=== PATIENT | female | born 1945 | race Caucasian/White ===

== ENCOUNTER 2025-07-26 08:08 | Emergency (ER) | payer OTHER, SELFPAY ==
[2025-07-26] VITALS (9 sets, daily range): BP systolic 113–187; BP diastolic 62–96; BMI 27.8
--- NOTE | 2025-07-26 08:32 | ED.GENMED ---
History of Present Illness
General
Chief Complaint: Back Pain
Source: patient
Exam Limitations: none
Time Seen by Provider: 07/26/25 08:12
History of Present Illness
History of Present Illness:
80yoF with a history of hypertension, hyperlipidemia, type 2 diabetes, asthma, and prior back surgery presenting via EMS for evaluation of right flank/back pain. She denies any trauma or inciting incident. She woke up around 3 AM with pain. Pain
has been constant since it began. Pain is worse with movement and breathing. She took [id number] medication without any relief. She denies any fevers, chest pain, dysuria, hematuria. No radiating pain down the legs or lower extremity
weakness. She lives alone and ambulates with a rolling walker.
Phy Exam
General Physical Exam
General Presentation: well appearing and no apparent distress
General age: appears stated age
General Skin: warm and dry
General Habitus: normal and elderly
General Mental: alert
ENT Exam
ENT Exam: normocephalic
Cardiovascular Exam
Cardiovascular Exam: regular rate/rhythm, no murmur and normal peripheral pulses (2+ PT pulses bilaterally)
Pulmonary Exam
Pulmonary Exam: lungs clear, no respiratory distress, no rales, no crackles, no rhonchi and no wheezing
Gastrointestinal Exam
Gastrointestinal Exam: soft, non distended and other (+Tenderness throughout lower abdomen. No rebound or guarding.)
Neurological Exam
Neurological Exam: alert
[place] Coma Scale
Eye Opening: Spontaneous
Verbal Response: Oriented
Motor Response: Obeys Commands
GCS Total Score: 15
Musculoskeletal Exam
Musculoskeletal Exam: other (+Tenderness in R paraspinal lumbar region. No skin changes.)
Skin Exam
Skin Exam: normal color and warm/dry
Psychiatric Exam
Psychiatric Exam: normal mood/affect
Course
Orders/Labs/Results
Orders:
Orders
07/26/25 08:21
Electrocardiogram (*1) Urgent
Reason for Study: Abdominal Pain
EKG- Treatment ONCE
IV Insert/Care/Rem.- Treatment PRN
07/26/25 08:32
PE/ABD/Pel w Contrast CT [CT Pe/abd/pel W] Urgent
Comment:
Reason For Exam: R flank pain, lower abd pain
07/26/25 08:34
Complete Blood Count/With Diff Urgent
Comprehensive Metabolic Panel Urgent
Lipase Urgent
07/26/25 10:32
Diphenhydramine [Benadryl] 50 mg IV NOW STA
Hydrocortisone Sod Succinate [Solu-Cortef] 200 mg IV NOW STA
07/26/25 10:59
Urinalysis Reflex To Culture Urgent
Date Specimen was Collected: 07/26/25
Time Specimen was Collected: 10:43
Urine Microscopic Reflex Cult Urgent
Urine Culture Urgent
VERN Source: U
Specimen Description:
Date Specimen was Collected: 07/26/25
Time Specimen was Collected: 10:43
07/26/25 13:09
Acetaminophen [Tylenol] 1,000 mg PO NOW STA
Lidocaine [Lidocaine 4% Patch] 1 patch TOPICAL ONCE ONE
Apply Lidocaine patch(s) to:: R lower back
07/26/25 13:58
Ketorolac [Toradol] 15 mg IV NOW STA
Abnormal Lab Results
07/26/25 07/26/25
08:34 10:59
RBC 4.16 L 10^6/uL
(4.20-5.40)
MCHC 32.1 L g/dL
(33.0-37.0)
Immature Gran % 0.6 H %
(0-0.5)
BUN 20 H mg/dl
(7-17)
Glucose 176 H mg/dl
(70-99)
Leukocyte Esterase Rfl 3+ A
(Negative)
Urine RBC 3-6 A /HPF
(0-2)
Urine WBC (Reflex) 30-40 A /HPF
(0-5)
Urine Bacteria (Reflex) Few A
(Negative)
07/26/25 08:34
07/26/25 08:34
Vital Signs
Initial and Last Documented VS:
Initial Vital Signs
Temp Pulse Resp Pulse Ox
97.4 F 73 18 96
07/26/25 08:12 07/26/25 08:12 07/26/25 08:12 07/26/25 08:12
Last Documented Vital Signs
Temp Pulse Resp BP Pulse Ox
97.4 F 63 17 113/96 98
07/26/25 08:12 07/26/25 15:00 07/26/25 15:00 07/26/25 15:00 07/26/25 15:00
MDM/Problems Addressed
Differential Diagnosis Includes:
80yoF here with R flank/low back pain that woke her up this morning. Worse with movement and breathing. No trauma. She is hypertensive with otherwise stable vitals. There is reproducible tenderness on exam. Differential diagnosis includes but is not
limited to: muscular strain, early shingles, kidney stone, pyelonephritis, PE, pneumonia
Initial ED plan: Check abdominal labs, EKG, UA, and CTA CAP. Documented iodine allergy although patient denies any history of contrast allergy. CT department will not scan her without premedication so IV Benadryl and hydrocortisone ordered per
protocol.
*Pulse Oximetry
SaO2: 97
Oxygen Mode of Delivery: Room air
Patient hypoxic: no
*EKG
Interpreted by ED Provider?: Yes
EKG Intrepretation Date: 07/26/25
Heart Rate: 61
Rate: normal
Rhythm: sinus
[place]: normal axis
Interval: normal interval
QRS Pattern: normal QRS
Ischemia: no ischemia
*Critical Care Note
Total Time (30-74mins, 75-104mins- exclusive of procedures): Not Applicable
Update Note
Update Note:
Labs unremarkable including normal white count and renal function. 30-40 WBCs on urinalysis although >30/LPF squamous epithelial cells present suggesting contaminated sample. No evidence of cystitis or pyelonephritis on imaging. She has no urinary
symptoms so will await urine culture results. CT shows degenerative disc disease with an incidental 7mm nodular density in R lung. No imaging findings to correlate with her pain. Suspect pain is muscular in origin. Patient stable for discharge.
Supportive care discussed and advised f/u with PCP. Copy of radiology report given to patient. Daughter also updated via phone.
ED Attending Note
-
Portions of this chart may have been created with voice recognition software.� Occasional wrong word or��sound alike� substitutions may have occurred due to the inherent limitations of voice recognition software.
Discharge Plan
Departure
Patient Disposition: Home (Routine Discharge)
Date of Disposition: 07/26/25
Time of Disposition: 13:58
Patient with high blood pressure during this ER visit?: Yes
Discharge Problem:
Acute right-sided low back pain, Lung nodule
Instructions: Low Back Pain (DC)
Prescriptions:
No Action
montelukast [Singulair] 10 MG tablet
10 mg PO QPM
atorvastatin [Lipitor] 10 mg Tablet
10 mg PO HS
nadolol 40 mg Tablet
40 mg PO DAILY
gabapentin 100 mg Capsule
100 mg PO HS
lorazepam 1 mg Tablet
1 mg PO Q8HPRN PRN (Reason: anxiety)
losartan-hydrochlorothiazide 50-12.5 mg Tablet
1 tab PO DAILY
Janumet 50-1,000 mg Tablet
1 tab PO BID
mirabegron [Myrbetriq] 50 mg Tablet Extended Release 24 Hr
50 mg PO DAILY
Referrals:
Cintia Bella MD [Family Provider, Family Practice]
Activity Restrictions/Additional Instructions:
Apply heat to affected area. Use lidocaine patches daily (12 hours on, 12 hours off). Take Tylenol 650mg every 6 hours as needed for pain.
Please call your family doctor today to schedule a follow-up appointment and discuss the lung nodule seen on today's CT scan.
Return to the ER with any new or worsening symptoms.
Interventions
Interventions:
*Risk Screen - Suicide Last Done: 07/26/25 08:12
*General Assessment Last Done: 07/26/25 08:12
*Neglect/Abuse Screening Last Done: 07/26/25 08:12
*ED- Fall Risk Assessment Last Done: 07/26/25 08:12
*ED COVID-19 Vaccine History Last Done: 07/26/25 08:24
*ED Influenza Vaccine History Last Done: 07/26/25 08:24
ED-Musculoskeletal Assessment Last Done: 07/26/25 08:25
Discharge Date and Time
Print Language: MACEDONIAN
[2025-07-26 08:55] LABS: Hematocrit 38.0 % (37.0-47.0); Hemoglobin 12.2 g/dL (12.0-16.0); Mean Corp Hgb Conc. 32.1 g/dL (33.0-37.0); Mean Corpuscular Volume 91.3 fL (81.0-99.0); Nucleated Red Blood Cells % 0 %; Platelet Count 240 10^3/uL (130-400); Red Cell Dist. Width 14.1 % (11.5-14.5)
[2025-07-26 09:02] LABS: ALT (SGPT) 21 U/L (0-35); AST (SGOT) 30 U/L (14-36); Albumin 4.7 g/dl (3.5-5.0); Alkaline Phosphatase 104 U/L (38-126); Blood Urea Nitrogen 20 mg/dl (7-17); Calcium 9.6 mg/dl (8.4-10.2); Carbon Dioxide 28 mmol/L (22-30); Chloride 102 mmol/L (98-107); Estimated Creatinine Clearance 47 ml/min; Glucose 176 mg/dl (70-99); Lipase 279 U/L (23-300); Potassium 4.2 mmol/L (3.5-5.1); Sodium 140 mmol/L (135-145); Total Protein 7.7 g/dl (6.3-8.2); eGFR > 60.00
[2025-07-26 11:08] LABS: Urine Character Clear (Clear)
[2025-07-26] MEDS: SOLU-CORTEF 200 MG IV (11:09)
[2025-07-26] MEDS: BENADRYL 50 MG IV (11:17)
[2025-07-26 11:25] LABS: Urine Squamous Cell >30 /LPF (Few)
[2025-07-26 11:27] LABS: Urine White Cell 30-40 /HPF (0-5)
[2025-07-26] MEDS: TYLENOL 1000 MG PO (13:20)
[2025-07-26] MEDS: LIDOCAINE 4% PATCH 1 PATCH TOPICAL (13:20)
[2025-07-26] MEDS: TORADOL 15 MG IV (14:08)
== END 2025-07-26 16:23 | disposition home or self-care (01) ==
LOC: EMR 08:08
PROVIDERS: Physician Assistant; EMERGENCY PHYSICIAN Emergency Medicine; FAMILY PHYSICIAN Family Medicine
DX: M54.50 Low back pain, unspecified (principal); R91.1 Solitary pulmonary nodule; I10 Essential (primary) hypertension; E78.5 Hyperlipidemia, unspecified; E11.9 Type 2 diabetes mellitus without complications; J45.909 Unspecified asthma, uncomplicated; Z60.2 Problems related to living alone
CPT/HCPCS: 96374; 96375; 99284; 71275; 74177; 80053; 81003; 81015; 83690; 85025; 87086; 93005; Q9967